=== PATIENT | male | born 1990 | race Two or more races ===

== ENCOUNTER 2022-12-22 18:17 | Emergency (ER) | payer OTHER ==
[~2022-12-22] VITALS: Ht 177.8 cm; Wt 59.0 kg
== END 2022-12-22 20:08 | disposition home or self-care (01) ==
LOC: ER 18:17
DX: J10.1 Influenza due to other identified influenza virus with other respiratory manifestations (principal); K52.9 Noninfective gastroenteritis and colitis, unspecified; Z20.822 Contact with and (suspected) exposure to COVID-19; Z88.6 Allergy status to analgesic agent